=== PATIENT | female | born 1980 | race Caucasian/White ===

== ENCOUNTER 2022-03-03 12:33 | Emergency (ER) | payer OTHER ==
[~2022-03-03] VITALS: Ht 162.6 cm; Wt 74.4 kg
[2022-03-03 12:43] VITALS: BP 118/64
--- NOTE | 2022-03-03 12:51 | NUR ---
COVID, FLU SWABS DONE.
--- NOTE | 2022-03-03 13:00 | NUR ---
BIB SELF C/O COUGH, RUNNY NOSE, CONGESTION , INTERMITENT CP X 2 DAYS. DENIES CP AT THIS TIME. 13 WEEKS . PMH: DENIES
[2022-03-03] MEDS ORDERED: ACET-10509 PO (14:34)
[2022-03-03] MEDS ORDERED: CETI10SG1 PO (14:34)
[2022-03-03 14:55] VITALS: BP 117/70
--- NOTE | 2022-03-03 14:55 | NUR ---
Patient discharged with v/s stable. Written and verbal after care instructions given. Patient alert, oriented and verbalized understanding of instructions. Ambulatory with steady gait. All questions addressed prior to discharge. ID band removed. Patient advised to follow up with PMD. Rx of TYLENOL AND CETIRIZINE given. Opportunity to ask questions provided and answered.
--- NOTE | 2022-03-03 14:56 | NUR ---
Chart checked and completed. The patient's care was reviewed and supervised by Lilly Hernandez RN.
== END 2022-03-03 14:55 | disposition home or self-care (01) ==
LOC: MED 12:33
DX: O99.511 Diseases of the respiratory system complicating pregnancy, first trimester (principal); J06.9 Acute upper respiratory infection, unspecified; Z20.822 Contact with and (suspected) exposure to COVID-19; Z3A.13 13 weeks gestation of pregnancy; Z79.899 Other long term (current) drug therapy
CPT/HCPCS: 99283

== ENCOUNTER 2022-08-28 09:48 | Inpatient (IN) | payer OTHER ==
[~2022-08-28] VITALS: Ht 162.6 cm; Wt 86.2 kg
[~2022-08-28 09:48] MED LIST: ACET-10509 PO; CETI10SG1 PO
[2022-08-28] MEDS ORDERED: ONDANSETRON 4 MG/2 ML VIAL IVP PRN (10:55)
[2022-08-28] MEDS ORDERED: AMPICILLIN 2,000 MG in NACL 0.9% 100 ML IV SCH (10:55)
[2022-08-28] MEDS ORDERED: OXYTOCIN 20 UNITS in LACTATED RINGERS 1,000 ML IV SCH (10:55)
--- NOTE | 2022-08-28 11:12 | NUR ---
PATIENT HAS BEEN SCREENED AND CATEGORIZED LOW NUTRITION RISK. PATIENT WILL BE SEEN WITHIN 7 DAYS OF ADMISSION. 09/04/[address]
[2022-08-28] MEDS: LACTATED RINGERS 1,000 ML IV SCH ×2 (11:40→18:50)
[2022-08-28] MEDS ORDERED: METHYLERGONOVINE 0.2 MG/ML AMP IM PRN (11:45)
[2022-08-28 12:26] LABS: BASOPHILS % (AUTO) 0.1 % (0.0-2.0); EOSINOPHILS % (AUTO) 0.6 % (0.0-4.0); HEMATOCRIT 32.7 % (36-48); HEMOGLOBIN 10.9 g/dL (12.0-16.0); LYMPHOCYTES # (AUTO) 1.1 K/uL (2.5-16.5); LYMPHOCYTES % (AUTO) 15.5 % (20.5-51.1); MEAN CORPUSCULAR HEMOGLOBIN 28 pg (27-31); MEAN CORPUSCULAR HGB CONC 33 g/dL (33-37); MEAN CORPUSCULAR VOLUME 83.9 fL (80-94); MONOCYTES # (AUTO) 0.9 K/uL (0.8-1.0); MONOCYTES % (AUTO) 12.1 % (1.7-9.3); NEUTROPHILS # (AUTO) 5.2 K/uL (1.8-7.7); NEUTROPHILS % (AUTO) 71.7 % (42.2-75.2); PLATELET COUNT (AUTO) 140 K/uL (140-450); RED CELL DISTRIBUTION WIDTH 15.7 % (11.6-13.7); WHITE BLOOD COUNT (AUTO) 7.3 K/uL (4.8-10.8)
[2022-08-28 12:33] LABS: APPEARANCE,URINE CLEAR (CLEAR); BILIRUBIN,URINE NEGATIVE (NEGATIVE); BLOOD, URINE 1+ (NEGATIVE); COLOR,URINE YELLOW (YELLOW); LEUKOCYTE ESTERASE ,URINE NEGATIVE (NEGATIVE); NITRITE, URINE NEGATIVE (NEGATIVE); UGLUCOSE TRACE (NEGATIVE)
[2022-08-28 12:40] VITALS: BP 123/65
[2022-08-28] MEDS ORDERED: PNV1TABL5 PO (12:47)
[2022-08-28] MEDS ORDERED: OXYTOCIN 20 UNITS/LR PREMIX 1,000 ML IV ONE (12:50)
[2022-08-28 13:00] LABS: ALBUMIN 2.5 g/dL (3.4-5.0); CARBON DIOXIDE 23.6 mmol/L (21-32); CREATININE 0.5 mg/dL (0.6-1.3); POTASSIUM 3.6 mmol/L (3.5-5.1); TOTAL BILIRUBIN 0.2 mg/dL (0.0-1.0)
[2022-08-28 13:21] LABS: PROTHROMBIN TIME 9.7 secs (10.8-13.4)
[2022-08-28] MEDS ORDERED: AMPICILLIN 1,000 MG in NACL 0.9% 50 ML IV SCH (15:00)
[2022-08-28] MEDS: MORPHINE SULFATE 10 MG/ML VIAL IVP PRN ×2 (19:28→21:47)
[2022-08-28] MEDS ORDERED: LIDOCAINE 1% 500 MG/50 ML VIAL INJ SCH (21:35)
[2022-08-28 21:47] VITALS: BP 115/58
[2022-08-29] MEDS ORDERED: MEASLES, MUMPS, AND RUBELLA 1 VIAL SQVAC ONE
[2022-08-29] MEDS ORDERED: BENZOCAINE/MENTHOL 20%-0.5% 60 GM CAN TP PRN
[2022-08-29] MEDS ORDERED: IBUPROFEN 800 MG TAB PO PRN
[2022-08-29] MEDS ORDERED: OXYTOCIN 10 UNITS/ML VIAL IM PRN
[2022-08-29] MEDS ORDERED: METHYLERGONOVINE 0.2 MG TAB PO PRN
[2022-08-29] MEDS ORDERED: METHYLERGONOVINE 0.2 MG/ML AMP IM PRN
[2022-08-29] MEDS ORDERED: SODIUM PHOSPHATE 118 ML ENEM RC PRN (00:05)
[2022-08-29] MEDS ORDERED: TEMAZEPAM 15 MG CAP PO PRN (00:05)
[2022-08-29] MEDS ORDERED: bisacodyL 10 MG SUPP RC PRN (00:05)
[2022-08-29 05:16] LABS: HEMATOCRIT 27.2 % (36-48)
[2022-08-29] MEDS ORDERED: DOCUSATE SOD/SENNA 50/8.6 MG 1 TAB PO SCH (20:00)
[2022-08-30] MEDS ORDERED: DOCUSATE SOD/SENNA 50/8.6 MG 1 TAB PO SCH (21:00)
== END 2022-08-30 14:30 | disposition home or self-care (01) | DRG 560 ==
LOC: MLD 09:48 → OBSVTOIN 11:01 → MFCC 08-29 00:46
PROVIDERS: ADMIT Obstetrics & Gynecology; ATTEND Obstetrics & Gynecology
PROC: 10E0XZZ Delivery of Products of Conception, External Approach (ICD-10-PCS; principal; 2022-08-28)
PROC: 0KQM0ZZ Repair Perineum Muscle, Open Approach (ICD-10-PCS; 2022-08-28)
DX: O99.02 Anemia complicating childbirth (principal); Z37.0 Single live birth; D62 Acute posthemorrhagic anemia; O70.1 Second degree perineal laceration during delivery; Z20.822 Contact with and (suspected) exposure to COVID-19; Z3A.38 38 weeks gestation of pregnancy
CPT/HCPCS: 36415; 59409; 76815; 80053; 81000; 81003; 85018; 85025; 85610; 85730; 86592; 86886; 86900; 86901; 87653-90; J2270; J2405; J2590; Q0092

== ENCOUNTER 2022-11-18 00:55 | Emergency (ER) | payer OTHER ==
[~2022-11-18] VITALS: Ht 160 cm; Wt 73.5 kg
[~2022-11-18 00:55] MED LIST changes: +PNV1TABL5 PO
[2022-11-18 01:04] VITALS: BP 146/84; PULSE 65; RESP 16; TEMP 97; O2SAT 98
[2022-11-18] MEDS ORDERED: METOCLOPRAMIDE 10 MG TAB PO ONE (02:05)
[2022-11-18] MEDS ORDERED: ACETAMINOPHEN EXTRA STRENGTH 500 MG TAB PO ONE (02:05)
[2022-11-18] MEDS ORDERED: NACL 0.9% 1,000 ML IV ONE (02:05)
[2022-11-18 02:17] LABS: APPEARANCE,URINE CLEAR (CLEAR); BILIRUBIN,URINE NEGATIVE (NEGATIVE); BLOOD, URINE NEGATIVE (NEGATIVE); COLOR,URINE YELLOW (YELLOW); LEUKOCYTE ESTERASE ,URINE TRACE (NEGATIVE); NITRITE, URINE NEGATIVE (NEGATIVE); PROTEIN,URINE NEGATIVE (NEGATIVE); UGLUCOSE NEGATIVE (NEGATIVE); UROBILINOGEN,URINE 0.2 EU/dL (0.2 - 1)
[2022-11-18 02:22] LABS: BACTERIA,URINE 10-30 (MOD) /HPF (None Seen); MUCUS,URINE 1+ /LPF (None Seen); RBC,URINE 0-5 /HPF (0-5); SQUAMOUS EPITHELIAL CELL,UR 0-3 (FEW) /LPF (0-3 (FEW))
[2022-11-18 02:27] LABS: BASOPHILS % (AUTO) 0.4 % (0.0-2.0); EOSINOPHILS # (AUTO) 0.1 K/uL (0-0.4); EOSINOPHILS % (AUTO) 0.8 % (0.0-4.0); HEMATOCRIT 38.4 % (36-48); HEMOGLOBIN 12.7 g/dL (12.0-16.0); LYMPHOCYTES # (AUTO) 1.3 K/uL (2.5-16.5); LYMPHOCYTES % (AUTO) 15.4 % (20.5-51.1); MEAN CORPUSCULAR HEMOGLOBIN 28 pg (27-31); MEAN CORPUSCULAR HGB CONC 33 g/dL (33-37); MONOCYTES # (AUTO) 0.5 K/uL (0.8-1.0); NEUTROPHILS # (AUTO) 6.5 K/uL (1.8-7.7); NEUTROPHILS % (AUTO) 77.4 % (42.2-75.2); PLATELET COUNT (AUTO) 159 K/uL (140-450); RED BLOOD CELL COUNT(AUTO) 4.52 MIL/uL (4.20-5.40); RED CELL DISTRIBUTION WIDTH 15.2 % (11.6-13.7); WHITE BLOOD COUNT (AUTO) 8.4 K/uL (4.8-10.8)
[2022-11-18 02:57] LABS: ALBUMIN 3.8 g/dL (3.4-5.0); ANION GAP 13.5 (8-16); CALCIUM 8.8 mg/dL (8.5-10.1); CARBON DIOXIDE 25.2 mmol/L (21-32); CREATININE 0.9 mg/dL (0.6-1.3); POTASSIUM 3.7 mmol/L (3.5-5.1); TOTAL BILIRUBIN 0.3 mg/dL (0.0-1.0); TOTAL PROTEIN, SERUM 7.2 g/dL (6.4-8.2)
[2022-11-18] MEDS ORDERED: ACET-10509 PO (03:24)
[2022-11-18] MEDS ORDERED: IBUP-2213 PO (03:24)
[2022-11-18] MEDS ORDERED: METO-486 PO (03:24)
[2022-11-18 03:42] VITALS: BP 146/84; PULSE 65; RESP 16; TEMP 97; O2SAT 98
== END 2022-11-18 03:48 | disposition home or self-care (01) ==
LOC: MED 00:55
DX: I10 Essential (primary) hypertension (principal); R51.9 Headache, unspecified; Z79.899 Other long term (current) drug therapy
CPT/HCPCS: 36415; 70460; 80053; 81001; 81025; 85025; 87086; 96360; 99285; J7030; J8597; Q9967